=== PATIENT | female | born 1975 | race American Indian/Alaskan Native ===

== ENCOUNTER 2017-11-07 17:08 | Emergency (ER) | payer MEDICAID ==
[2017-11-07] MEDS ORDERED: DUONEB *Not for PRN Use IH ONE (20:24)
[2017-11-07] MEDS ORDERED: TYLENOL PO ONE ×2 (20:24→21:07)
[2017-11-07] MEDS ORDERED: DELTASONE PO ONE ×2 (20:24→21:07)
--- NOTE | 2017-11-07 20:48 | Emergency Department Report ---
- General Chief Complaint: Upper Respiratory Infection Stated Complaint: FLU SYMPTOMS Time Seen by Provider: 11/07/17 20:23 Source: patient Mode of arrival: Ambulatory Limitations: No Limitations - History of Present Illness Initial Comments: 42-year-old female past medical history obesity presents with complaint of dry cough that began yesterday with some body aches. Patient does have a history of asthma. Denies any nausea or vomiting. Subjective fever and chills. Denies any dysuria or hematuria or increased urinary frequency. Patient does awake alert lucid and ambulatory. Multiple sick contacts at home with flulike symptoms. MD Complaint: fever, cough, nasal congestion Onset/Timin -: days(s) Severity: moderate Consistency: intermittent Improves With: nothing Worsens With: nothing Context: sick contacts - Related Data Previous Rx's Medication Instructions Recorded Last Taken Type Albuterol Sulfate [Ventolin Hfa] 1 puff IH Q4H PRN #1 hfa.aer.ad 11/07/17 Unknown Rx Ibuprofen [Motrin] 800 mg PO Q8HR PRN #30 tablet 11/07/17 Unknown Rx Oseltamivir [Tamiflu] 75 mg PO BID #10 cap 11/07/17 Unknown Rx Phenylephrine/Dm/Acetaminop/GG 10 ml PO Q6H PRN #1 liquid 11/07/17 Unknown Rx [Mucinex Mhep-Rep-Umubfxuyym Lq] predniSONE [Deltasone] 40 mg PO QDAY #10 tab 11/07/17 Unknown Rx Allergies Allergy/AdvReac Type Severity Reaction Status Date / Time ketorolac [From Toradol] AdvReac Swelling Verified 11/07/17 17:53 tramadol AdvReac Swelling Verified 11/07/17 17:53 ED Review of Systems ROS: Stated complaint: FLU SYMPTOMS Other details as noted in HPI Constitutional: fever, malaise. denies: chills Eyes: denies: eye pain, eye discharge, vision change ENT: denies: ear pain, throat pain Respiratory: denies: cough, shortness of breath, wheezing Cardiovascular: denies: chest pain, palpitations Endocrine: no symptoms reported Gastrointestinal: denies: abdominal pain, nausea, diarrhea Genitourinary: denies: urgency, dysuria, discharge Musculoskeletal: denies: back pain, joint swelling, arthralgia Skin: denies: rash, lesions Neurological: denies: headache, weakness, paresthesias Psychiatric: denies: anxiety, depression Hematological/Lymphatic: denies: easy bleeding, easy bruising ED Past Medical Hx - Past Medical History Previous Medical History?: Yes Hx Asthma: Yes Additional medical history: bronchitis - Surgical History Past Surgical History?: Yes Additional Surgical History: tubal ligation. L shoulder. L ankle - Social History Smoking Status: Never Smoker Substance Use Type: None - Medications Home Medications: Home Medications Medication Instructions Recorded Confirmed Last Taken Type Albuterol Sulfate [Ventolin Hfa] 1 puff IH Q4H PRN #1 hfa.aer.ad 11/07/17 Unknown Rx Ibuprofen [Motrin] 800 mg PO Q8HR PRN #30 tablet 11/07/17 Unknown Rx Oseltamivir [Tamiflu] 75 mg PO BID #10 cap 11/07/17 Unknown Rx Phenylephrine/Dm/Acetaminop/GG 10 ml PO Q6H PRN #1 liquid 11/07/17 Unknown Rx [Mucinex Klra-Nnc-Edzqnjqloh Lq] predniSONE [Deltasone] 40 mg PO QDAY #10 tab 11/07/17 Unknown Rx ED Physical Exam - General Limitations: No Limitations General appearance: alert, in no apparent distress - Head Head exam: Present: atraumatic, normocephalic - Eye Eye exam: Present: normal appearance, PERRL, EOMI - ENT ENT exam: Present: mucous membranes moist - Neck Neck exam: Present: normal inspection - Respiratory Respiratory exam: Present: normal lung sounds bilaterally. Absent: respiratory distress - Cardiovascular Cardiovascular Exam: Present: regular rate, normal rhythm. Absent: systolic murmur, diastolic murmur, rubs, gallop - GI/Abdominal GI/Abdominal exam: Present: soft, normal bowel sounds - Extremities Exam Extremities exam: Present: normal inspection - Back Exam Back exam: Present: normal inspection - Neurological Exam Neurological exam: Present: alert, oriented X3 - Psychiatric Psychiatric exam: Present: normal affect, normal mood - Skin Skin exam: Present: warm, dry, intact, normal color. Absent: rash ED Course Vital Signs 11/07/17 11/07/17 17:47 23:10 Temperature 99.7 F H 99.4 F Pulse Rate 107 H 101 H Respiratory 16 20 Rate Blood Pressure 133/80 Blood Pressure 120/77 [Right] O2 Sat by Pulse 99 97 Oximetry ED Medical Decision Making - Medical Decision Making A/P: Flulike illness, viral syndrome, reactive airway disease 1- chest x-ray is unremarkable, 2- vital signs stable before discharge. Patient tolerating by mouth fluid and food without difficulty 3-Motrin when necessary, Mucinex when necessary, Tessalon Perles when necessary. I offered patient Tamiflu. Patient expressed some interest in taking it after discussion of side effects benefits and risks of taking Tamiflu. I educated patient and provided her with literature on fluid management https://www.[employer]/contents/iszbnovdu-ysmmgmyu-gpo-treatment- veprem-bwi-xjixdw/print?source=see_link 4- I advised patient to follow up with primary care or to return to the ED for any inability to tolerate by mouth fluid or food persistent nausea and vomiting severe fevers and chills or fevers persistently above 100.4F despite antipyretic use, severe lethargy. Patient stated she understood my instructions. I advised patient to remain well-hydrated. Critical care attestation.: If time is entered above; I have spent that time in minutes in the direct care of this critically ill patient, excluding procedure time. ED Disposition Clinical Impression: Flu-like symptoms Reactive airway disease Qualifiers: Asthma severity: mild Asthma persistence: intermittent Asthma complication type : with acute exacerbation Qualified Code(s): J45.21 - Mild intermittent asthma with (acute) exacerbation Disposition: DC-01 TO HOME OR SELFCARE Is pt being admited?: No Does the pt Need Aspirin: No Condition: Stable Instructions: Influenza (ED), Reactive Airways Disease (ED) Prescriptions: Albuterol Sulfate [Ventolin Hfa] 1 puff IH Q4H PRN #1 hfa.aer.ad PRN Reason: Wheezing Ibuprofen [Motrin] 800 mg PO Q8HR PRN #30 tablet PRN Reason: Fever Oseltamivir [Tamiflu] 75 mg PO BID #10 cap Phenylephrine/Dm/Acetaminop/GG [Mucinex Fhwc-Iua-Mnamksugtj Lq] 10 ml PO Q6H PRN #1 liquid PRN Reason: Cough predniSONE [Deltasone] 40 mg PO QDAY #10 tab Referrals: PRIMARY CARE, [Primary Care Provider] - 3-5 Days [facility] [Outside] - 3-5 Days [facility] [Outside] - 3-5 Days Forms: Accompanied Note, Work/School Release Form(ED) Time of Disposition: 23:16
--- NOTE | 2017-11-07 22:49 | XRay Report ---
FINAL REPORT PROCEDURE: XR CHEST ROUTINE 2V TECHNIQUE: PA lateral chest HISTORY: cough, flu liek symptoms COMPARISON: No prior studies are available for comparison. FINDINGS: Shallow inspiration. Top-normal heart size. Elevation hemidiaphragms. Minimal lung base atelectasis left greater than right IMPRESSION: Minimal left lung base atelectasis. No consolidative pneumonia or effusion
[2017-11-07 23:11] VITALS: BP 120/77
== END 2017-11-08 01:45 | disposition home or self-care (01) ==
LOC: ED 17:08
DX: J45.21 Mild intermittent asthma with (acute) exacerbation (principal); Z88.8 Allergy status to other drugs, medicaments and biological substances
CPT/HCPCS: 71046; 94640; 99283; J7512